=== PATIENT | female | born 1970 | race Caucasian/White ===

== ENCOUNTER 2020-09-14 18:10 | Emergency (ER) | payer SELFPAY ==
--- NOTE | 2020-09-14 | XR_ITS ---
EXAMINATION: XR HAND, RIGHT CLINICAL INFORMATION: Dog bite COMPARISON: None TECHNIQUE: PA, lateral, and oblique views of the right hand. FINDINGS: Visualized portion of the distal radius and colon demonstrate no fracture. Carpal rows are well aligned. No carpal, metacarpal or phalangeal fracture. No significant degenerative changes. No radiopaque foreign body. Mild soft tissue swelling along the dorsal aspect of the hand with skin irregularity and subcutaneous emphysema consistent with puncture wound. XR/XR hand RT 2V IMPRESSION: Laceration with soft tissue swelling of the hand. No fracture or radiopaque foreign body.
[2020-09-14 20:03] VITALS: BP 144/70; PULSE 76; RESP 18; TEMP 37.1; O2SAT 98; BMI 24.3
[2020-09-14] MEDS: ceFAZolin Sodium/Dextrose,Iso 2 GM/50 ML PIGGYBACK IV (21:57)
[2020-09-14] MEDS: Lidocaine HCl 1 % MPF 5 ML VIAL 10 ML SUBCUT (22:02)
--- NOTE | 2020-09-14 22:04 | ED_ITS ---
HPI - Animal Bite General Chief Complaint: Animal Bite Stated Complaint: dog bite Time Seen by Provider: 09/14/20 21:17 Source: patient Mode of arrival: ambulatory Limitations: no limitations History of Present Illness HPI narrative: States she got in between her 2 dogs who were during to fight over a toy and growling and was the dogs bit her on the right hand/wrist area. And tetanus vaccination. This is her dog, up-to-date on vaccinations. complaint: animal bite Animal: dog Description of animal: household pet Mechanism: bite Location: other (Right hand) Related Data Patient tetanus UTD: Yes Previous Rx's Medication Instructions Recorded amoxicillin-pot clavulanate 1 tab PO BID 10 Days #20 tab 09/14/20 [Augmentin] ibuprofen 800 mg PO Q8H PRN #30 tab 09/14/20 Allergies Allergy/AdvReac Type Severity Reaction Status Date / Time No Known Allergies Allergy Unverified 06/02/20 17:57 Review of Systems Review of Systems: Constitutional: No Weight loss, No Fever, No Chills, No Night Sweats, No Fatigue, No Malaise ENT/Mouth: No Hearing loss, No Ear Pain, No Nasal Congestion, No Sinus Pain, No Hoarseness, No sore throat, No Rhinorrhea, No Swallowing Difficulty Eyes: No Eye Pain, No Swelling, No Redness, No Foreign Body, No Discharge, No Vision Changes Cardiovascular: No Chest Pain, No SOB, No Dyspnea on Exertion, No Orthopnea, No Edema, No Palpitations Respiratory: No Dyspnea Gastrointestinal: No Nausea, No Vomiting, No Diarrhea, No Constipation, No abdominal Pain, No Hematochezia, No Melena Musculoskeletal: No joint pain, No Myalgias, No Joint Swelling, as noted in HPI Skin: No Skin Lesions, No rash Neuro: No Headache Psych: No Social Issues Yes all other systems are reviewed and are negative [facility] Past Medical History Medical History (Updated 09/14/20 @ 22:07 by Mak Blevins NP) No known health problems Social History Social History Alcohol intake: never Smoked in Last 30 Days: No Use of substances other than those prescribed or required for medical reasons: No Substance Use Type: Marijuana Advance Directives: No Advance Directives Information Provided: Yes Physical Exam Vital Signs: Vital Signs: Last Vital Signs Temp 98.7 F 09/14/20 20:03 Pulse 76 09/14/20 20:03 Resp 18 09/14/20 20:03 BP 144/70 H 09/14/20 20:03 Pulse Ox 98 09/14/20 20:03 Body Mass Index 24.3 Reviewed Const: General: cooperative and healthy appearing; No acute distress or intoxicated appearing Nutritional Appearance: average body habitus Orientation/consciousness: patient oriented x3 Chest: Chest palpation & inspection: normal inspection of the chest Resp: Effort & Inspection: normal respiratory effort Auscultation: clear to auscultation bilaterally : General: Yes no CVA tenderness Back/Spine/Pelvis: Back: no CVA tenderness Skin: Other: General skin exam: no rashes or lesions noted Neuro: General: patient oriented x3 Extrem: General: Yes normal to inspection Course Course Course Narrative: Dog bite to volar aspect of the wrist requiring wound closure with 4 superficial stitches after lengthy discussion of risks/benefits of suturing close a dog bite and increased risk for infection requesting sutures for cosmetic purposes.. Also puncture wound to the palmar aspect. X-ray without acute findings. Given dose of Ancef IV here. Started on Augmentin for 10 days. Clear home care, return, follow-up instructions provided. Procedures Laceration Laceration 1: Site: hand (Right ) Side (If applicable): right Size (cm): 3 Description: linear Local Anesthetic: lidocaine 1% Amount of anesthesia used (mL): 10 Pre-repair: wound explored and irrigated extensively Skin layer closed with: nylon Size (cm): 6-0 Number of sutures: 5 Technique: simple, interrupted MDM - Animal Bite Differential Diagnosis Differential diagnosis: Likely bite by animal and dog bite Lab Data Attestation: I reviewed the patient's lab results. Imaging Data Right hand x-ray: Radiologist's impression: [address] [address] XRay Report Signed Patient: Susan Hassan TARIKR#: [id number] : 1970Acct:[id number] Age/Sex: 49 / FADM Date: 09/14/20 Loc: .ED Attending Dr: Ordering Physician: Generic ED Physician Date of Service: 09/14/20 Procedure(s): XR hand RT 2V Accession Number(s): [id number] cc: Generic ED Physician~ EXAMINATION: XR HAND, RIGHT CLINICAL INFORMATION: Dog bite COMPARISON: None TECHNIQUE: PA, lateral, and oblique views of the right hand. FINDINGS: Visualized portion of the distal radius and colon demonstrate no fracture. Carpal rows are well aligned. No carpal, metacarpal or phalangeal fracture. No significant degenerative changes. No radiopaque foreign body. Mild soft tissue swelling along the dorsal aspect of the hand with skin irregularity and subcutaneous emphysema consistent with puncture wound. XR/XR hand RT 2V IMPRESSION: Laceration with soft tissue swelling of the hand. No fracture or radiopaque foreign body. Dictated By:BEATRICE NOE MD Signed By:<Electronically signed by BEATRICE NOE MD in OV>09/14/202022 DD/ 09 TD/TT: Special Machine Operator: PD Discharge Plan Discharge Clinical Impression: Dog bite Qualifiers: Encounter type: initial encounter Qualified Code(s): W54.0XXA - Bitten by dog, initial encounter Patient Disposition: Home, Self-Care Instructions: Animal Bite (ED), Laceration (ED) Additional Instructions: Keep site clean and dry Return in 7 to 10 10 days to have sutures removed Take antibiotics as prescribed Monitor for any signs of infection as reviewed, return sooner if any concerns or any sign of infection; this includes redness, swelling, pain, fever Thank you Prescriptions: New amoxicillin-pot clavulanate [Augmentin] 875-125 mg tablet 1 tab PO BID 10 Days Qty: 20 RF: 0 ibuprofen 800 mg tablet 800 mg PO Q8H PRN (Reason: pain) Qty: 30 RF: 0 Referrals: Ward Patino MD [Primary Care Provider] - 1 week (Suture removal) Interventions: ED Discharge Assessment Last Done: 09/14/20 22:54 Discharge Date/Time: 09/14/20 22:58
--- NOTE | 2020-09-14 22:52 | PC.NURSE ---
PT DOG BITE TO RIGHT HAND NUMBED AND CLEANED AND SUTURED BY YOU CUELLAR. ANTIBIOTIC APPLIED WITH DSD.
== END 2020-09-14 22:58 | disposition home or self-care (01) ==
PROVIDERS: Emergency Provider Emergency Medicine; PCP Family Medicine
DX: S61.411A Laceration without foreign body of right hand, initial encounter (principal); S61.431A Puncture wound without foreign body of right hand, initial encounter; W54.0XXA Bitten by dog, initial encounter; Y93.89 Activity, other specified; Y92.019 Unspecified place in single-family (private) house as the place of occurrence of the external cause; Y99.9 Unspecified external cause status
CPT/HCPCS: 12002; 73120; 96365; 99284; J0690

== ENCOUNTER 2021-06-23 22:25 | Inpatient (IN) | payer MEDICAID, SELFPAY ==
--- NOTE | ~2021-06-23 | MR_ITS ---
EXAMINATION: MR BRAIN WITHOUT AND WITH CONTRAST CLINICAL INFORMATION: Extra-axial lesion. COMPARISON: CTA head and neck from 06/24/2021. TECHNIQUE: MRI of the brain was obtained using routine sequences without and following the administration of 7.5 mL of Gadavist intravenous contrast. FINDINGS: There is a lesion in the lateral aspect of the left temporal lobe with peripheral T2 hypointensity and internal bubbly appearance with pockets of layering hematocrit levels, measuring 1.6 x 1.4 x 0.9 cm. Associated susceptibility artifact and inherent T1 shortening. Mild perilesional T2 FLAIR hyperintensity. Potential faint associated enhancement, although no solid enhancement is demonstrated in this lesion that largely demonstrates inherent T1 hyperintensity. No focal restricted diffusion is demonstrated to suggest acute or subacute cerebral ischemia. No evidence of additional acute or chronic hemorrhagic products on heme-sensitive imaging. No additional parenchymal signal abnormalities. The ventricles are normal in morphology and size. No midline shift. Normal appearance of the pituitary gland. Normal positioning of the cerebellar tonsils. Normal arterial and venous vascular flow voids are present. No abnormal contrast enhancement. Stable subgaleal hematoma along the right frontal vertex, measuring 0.3 cm in depth. Normal, homogeneous marrow signal. Moderate mucosal thickening of the paranasal sinuses. Moderate rightward nasal septal deviation with spurring. No signal abnormalities within the mastoids. MR/MR head/brain wo/w con IMPRESSION: There is a 1.6 cm lesion in the posterolateral aspect of the left temporal lobe with characteristics suggestive of an underlying cavernoma. There appears to be a small degree of acute blood products associated with this lesion and mild perilesional edema. No demonstrated solidly enhancing component. Small to moderate right frontal scalp hematoma.
--- NOTE | ~2021-06-23 | CT_ITS ---
EXAMINATION: CTA OF THE HEAD/NECK CLINICAL INFORMATION: Subarachnoid hemorrhage versus mass. COMPARISON: Head CT from today TECHNIQUE: A routine non contrast head CT was performed earlier in the evening. This is followed by a 70 mL bolus of Omnipaque 350. Subsequent multidetector helical imaging was performed of the head and neck. Delayed post contrast imaging was also performed through the head. Multiplanar reformats and MIP were also obtained. Internal carotid artery stenoses are assessed in accordance with NASCET criteria unless otherwise indicated. This CT examination was performed using dose optimization techniques as appropriate, variously including the following: *Automated exposure control *Adjustment of mA and/or kV according to patient size (this includes techniques or standardized protocols for targeted exams where dose is matched to indication/reason for exam; i.e. extremities or head) *Use of iterative reconstruction technique DLP: 1515 mGy-cm. FINDINGS: CT HEAD: There is unchanged appearance of the peripheral linear high attenuation along the left temporal lobe. There is no evidence of territorial infarction. No abnormal mass effect or midline shift is seen. Connelly to white matter differentiation is well preserved. No suspicious leptomeningeal or parenchymal enhancement on the post-contrast images. No hydrocephalus. No significant volume loss. There is no abnormal attenuation within the brain parenchyma. The osseous structures and soft tissues are normal. Small mucus retention cyst in the right maxillary sinus. The mastoid air cells and visualized portions of the paranasal sinuses are otherwise well aerated. CTA NECK: The aortic arch is of normal caliber and the origins of the great vessels are patent without evidence of significant stenosis. The cervical portion of the vertebral arteries are patent bilaterally. No luminal irregularities in the common carotid arteries and the carotid bifurcations are patent bilaterally. The cervical portion of the internal carotid arteries are of normal caliber. The laryngeal structures and pharyngeal mucosal spaces are unremarkable. The oral cavity appears normal. The parotid and submandibular glands are normal. No pathologically enlarged lymph nodes. The thyroid gland is unremarkable. The lung apices are clear without evidence of pneumothorax. Spinal alignment is maintained. CTA HEAD: The intradural portion of the vertebral arteries are of normal caliber. The basilar, superior cerebellar, and posterior communicating arteries are patent. The posterior, middle, and anterior cerebral arteries are of normal caliber without evidence of significant luminal irregularity. No definite intracranial aneurysms. CT/CT angio head neck IMPRESSION: 1. Unchanged peripheral high attenuation along the left temporal lobe. Once again, this could represent subarachnoid hemorrhage versus extra-axial lesion. This can be further evaluated with MRI. 2. No acute vascular abnormality. No aneurysm.
--- NOTE | ~2021-06-23 | CT_ITS ---
EXAMINATION: CT HEAD WITHOUT CONTRAST CLINICAL INFORMATION: Loss of consciousness. Headache. COMPARISON: None. TECHNIQUE: Contiguous axial imaging was performed from the skull base to vertex without intravenous contrast. This CT examination was performed using dose optimization techniques as appropriate, variously including the following: * Automated exposure control * Adjustment of mA and/or kV according to patient size (this includes techniques or standardized protocols for targeted exams where dose is matched to indication/reason for exam; i.e. extremities or head) Use of iterative reconstruction technique DLP: 755 mGy-cm. FINDINGS: There is hypoattenuation along the left temporal lobe as seen on series 2 image 23. This is concerning for subarachnoid hemorrhage, although an extra-axial lesion is also possible. There is no evidence of acute territorial infarction. No abnormal mass effect or midline shift is seen. Connelly to white matter differentiation is well preserved. No hydrocephalus. No significant volume loss. There is no abnormal attenuation within the brain parenchyma. The osseous structures and soft tissues are normal. Mild mucoperiosteal thickening of the ethmoid air cells. The mastoid air cells and visualized portions of the paranasal sinuses are well aerated. CT/CT head/brain wo con IMPRESSION: Irregular peripheral area of hyperattenuation along the left temporal lobe. This may represent subarachnoid hemorrhage. Alternatively this could be an extra-axial lesion. This can be further evaluated with MRI. This critical result was discussed with Dr. Tapia by telephone at 06/24/2021 2:00 AM and it was ascertained that the content and urgency of the report was understood at the time of direct communication.
[2021-06-24] VITALS (9 sets, daily range): BP systolic 101–141; BP diastolic 43–81; PULSE 58–71; RESP 14–18; TEMP 36.6–36.9; O2SAT 97–98; BMI 24.3
--- NOTE | 2021-06-24 01:04 | ECG_ITS ---
Test Reason : SYNCOPE Blood Pressure : / mmHG Vent. Rate : 066 BPM Atrial Rate : 066 BPM P-R Int : 168 ms QRS Dur : 098 ms QT Int : 426 ms P-R-T Axes : 054 062 049 degrees QTc Int : 446 ms Normal sinus rhythm Normal ECG No previous ECGs available Referred By: Kendra Soares Electronically Signed By:CANDELARIO COELLO MD
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
[2021-06-24] MEDS: 0.9 % Sodium Chloride 1,000 ML 999 ML IVCONT (01:17)
[2021-06-24 01:18] LABS: MANUAL DIFF FLAG NO
[2021-06-24 01:20] LABS: Basophils Absolute Auto 0.1 X10*3/uL (0.0-0.2); Basophils Percent Auto 0.5 % (0-2); Eosinophils Percent Auto 0.3 % (0-4); Hematocrit 35.9 % (37-47); Hemoglobin 12.7 g/dl (12.0-16.0); Imm Gran Abs Auto 0.03 X10*3/uL (0.00-0.03); Imm Gran Pct Auto 0.3 % (0.0-0.4); Lymphocytes Absolute Auto 1.2 X10*3/uL (1.2-4.9); Lymphocytes Percent Auto 9.8 % (20-40); Mean Corpuscular HGB Conc 35.4 g/dl (31.0-35.0); Mean Corpuscular Hemoglobin 29.5 pg (27.0-33.0); Mean Corpuscular Volume 83.5 fL (80-98); Monocytes Absolute Auto 0.4 X10*3/uL (0.1-1.2); Monocytes Percent Auto 3.3 % (2-11); Neutrophils Absolute Auto 10.1 X10*3/uL (2.0-8.3); Neutrophils Percent Auto 85.8 % (45-73); Platelet Count 207 X10*3/uL (160-400); Red Cell Distribution Width 11.7 % (11.0-16.0); White Blood Count 11.8 X10*3/uL (4.8-10.8)
[2021-06-24 01:32] LABS: Lactic Acid 0.7 mmol/L (0.5-2.0)
[2021-06-24 01:34] LABS: Ethanol < 10 mg/dL
[2021-06-24 01:36] LABS: Alanine Aminotransferase 13 U/L (0-31); Albumin Level 4.2 g/dL (3.5-5.0); Alkaline Phosphatase 43 U/L (39-117); Anion Gap 12 (12-20); Aspartate Amino Transferase 17 U/L (5-31); Bilirubin Direct 0.2 mg/dL (0.0-0.5); Bilirubin Total 0.5 mg/dL (0.0-1.0); Blood Urea Nitrogen 8 mg/dL (9-16); Calcium 8.4 mg/dL (8.4-10.2); Carbon Dioxide 25 mmol/L (22-29); Creatinine Clr Calc Pharmacy 96.4; Estimated Glomerular Filt Rate > 60; Glucose Random 104 mg/dL (60-115); Potassium 3.8 mmol/L (3.3-5.1); Total Protein 6.5 g/dL (6.5-8.0)
[2021-06-24 01:38] LABS: D Dimer < 200 NG/ML
[2021-06-24 01:39] LABS: Troponin-I High Sensitivity 6.8 ng/L (<3.5-17.0)
[2021-06-24 01:40] LABS: Chloride 106 mmol/L (96-108); Sodium 139 mmol/L (135-145)
--- NOTE | 2021-06-24 02:10 | PC.NURSE ---
PO sumatriptan not available in any of ED pyxis. 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 notified for alternate medication
[2021-06-24] MEDS: Butalb/Acetamin/Caff 50/325/40 TABLET 1 TAB PO (02:16)
[2021-06-24] MEDS: iohexoL 350 MG/ML 100 ML INFUS..BTL 70 ML IV (02:46)
[2021-06-24 07:49] LABS: Appearance Urine CLEAR; Color Urine YELLOW; Glucose Urine UA NEG (NEG); Leukocyte Esterase Urine NEG (NEG); Nitrite Urine NEG (NEG); PH 6.5 (5.0-8.0); Specific Gravity - Urine <= 1.005 (1.005-1.025); Urine Blood NEG (NEG); Urine Ketones NEG (NEG); Urine Protein NEG (NEG-TRACE)
--- NOTE | 2021-06-24 07:51 | PC.NURSE ---
Pt reluctant to stay to have MRI. However once indication for MRI and admission was explained to pt by she is now agreeable to the plan. She is stable at this time and resting in bed in NAD.
[2021-06-24 07:56] LABS: UPreg QC Valid YES; Urine Pregnancy NEGATIVE (NEGATIVE)
[2021-06-24 07:57] LABS: Amphetamine Screen Urine Not Detected (Not Detect); Barbiturates, Urine POSITIVE (Not Detect); Benzodiazepines Screen Urine Not Detected (Not Detect); Cannabinoid Screen Urine POSITIVE (Not Detect); Cocaine Screen Urine Not Detected (Not Detect); Fentanyl, urine Not Detected (Not Detect); Opiate Screen Urine Not Detected (Not Detect); Phencyclidine Screen Urine Not Detected (Not Detect)
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
--- NOTE | 2021-06-24 11:12 | PC.NURSE ---
Pt has returned from MRI. She continues to attempt to arrange plans for animals at home and is unsure if she will need to leave AMA. Pt educated on the risks of leaving and states that she will inform staff if she does feel that she needs to leave the facility.
[2021-06-24] MEDS: 0.9 % Sodium Chloride Flush 3 ML SYRINGE IVFLUSH (11:16)
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
--- NOTE | 2021-06-24 15:56 | P.EN_ITS ---
Event Note Date of Service: 06/24/21 Event Note: Seen by Neurology after MRI( cavernous angioma ) w/seizure. Recomm end outpatient EEG/Neuro follow up. Given Keppra 500 mg prior to D/C. Script to pharmacy. Exam unchanged since admit. D/C to home . Follow with PCP/Neuro as outpatient. WIll need outpatient EEG
[2021-06-24] MEDS: levETIRAcetam 500 MG TABLET PO (16:13)
--- NOTE | 2021-06-24 16:23 | PC.NURSE ---
Pt educated on discharge plan with [employer]. [facility] providing pt with resources for [facility] information.
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
== END 2021-06-24 16:24 | disposition home or self-care (01) | DRG 101 ==
LOC: HO.ED 06-24 04:44 → HO.EDOVER 06-24 08:07
PROVIDERS: Admitting Provider Hospitalist; Emergency Provider Emergency Medicine; PCP Family Medicine; Visit Provider Hospitalist
DX: R56.9 Unspecified convulsions (principal); F15.23 Other stimulant dependence with withdrawal; D18.02 Hemangioma of intracranial structures; R55 Syncope and collapse
CPT/HCPCS: 36415; 70450; 70496; 70498; 70553; 80048; 80076; 80307; 81003; 81025; 82077; 83605; 84484; 85025; 85379; 93005; 99285; A9585; Q9967